=== PATIENT | female | born 1945 | race Caucasian/White ===

== ENCOUNTER 2020-02-23 11:39 | Day surgery (SDC) | payer MEDICARE, OTHER ==
[2020-02-23] MEDS ORDERED: BUPIVACAINE 0.5% VIAL IJ ONE (11:40)
[2020-02-23] MEDS ORDERED: Depo-Medrol 40 MG/ML IM ONE (11:40)
[2020-02-23] MEDS ORDERED: Ketamine HCl 50 MG/ML ONE (14:20)
[2020-02-23] MEDS ORDERED: DIPRIVAN 200 MG/20 ML IV ONE (14:20)
--- NOTE | 2020-02-23 15:20 | XRAY ---
Indication: Right knee injection. Intraoperative fluoroscopy was provided for 6 seconds. Single digital spot image submitted for interpretation demonstrates needle tip projecting over the right femur intercondylar notch. Small amount of contrast injected for needle tip placement. Correlate with intraoperative findings/report.
--- NOTE | 2020-02-23 15:29 | XRAY ---
Indication: Left knee injection. Intraoperative fluoroscopy was provided for 10 seconds. Single digital spot image submitted for interpretation demonstrates needle tip projecting over the left femur intercondylar notch. Small amount of contrast injected for needle tip placement. Correlate with intraoperative findings/report.
[2020-02-23] MEDS ORDERED: Lactated Ringers 1,000 ML IV ONE (16:08)
--- NOTE | 2020-02-23 16:20 | XRAY ---
10 seconds fluoroscopy time in surgery for left knee injection.
--- NOTE | 2020-02-23 16:20 | XRAY ---
6 seconds fluoroscopy time in surgery for right knee injection.
== END 2020-02-23 14:39 | disposition home or self-care (01) ==
LOC: SDC-PAIN 11:39
PROVIDERS: ATTEND Psychiatry & Neurology Pain Medicine
DX: M17.0 Bilateral primary osteoarthritis of knee (principal); I10 Essential (primary) hypertension; M54.30 Sciatica, unspecified side; M10.9 Gout, unspecified; Z79.899 Other long term (current) drug therapy
CPT/HCPCS: 20610; 73560; 77002; J1030; J2704; Q9966

== ENCOUNTER 2022-08-14 08:38 | Day surgery (SDC) | payer MEDICARE, OTHER ==
[2022-08-14] MEDS ORDERED: Sodium Chloride 0.9(Preservative Free) 10 ML IJ ONE (08:39)
[2022-08-14] MEDS ORDERED: Depo-Medrol 40 MG/ML IM ONE (08:39)
[2022-08-14] MEDS ORDERED: DIPRIVAN 200 MG/20 ML IV ONE (09:48)
--- NOTE | 2022-08-14 10:56 | XRAY ---
Indication: Left L3-L5 transforaminal EDIL. Intraoperative fluoroscopy provided for 44 seconds. 6 digital spot image submitted for interpretation demonstrates posterior needle tips projecting over the expected left L3 and L4 nerve roots. Small amount of contrast injected for needle tip placement. Correlate with intraoperative findings/report.
[2022-08-14] MEDS ORDERED: Lactated Ringers 1,000 ML IV ONE (14:45)
== END 2022-08-14 10:15 | disposition home or self-care (01) ==
LOC: SDC-PAIN 08:38
PROVIDERS: ATTEND Psychiatry & Neurology Pain Medicine
DX: M54.16 Radiculopathy, lumbar region (principal); Z79.899 Other long term (current) drug therapy
CPT/HCPCS: 64483; 64484; 72100; 77003; J1030; J2704; Q9966

== ENCOUNTER 2022-09-11 14:00 | Day surgery (SDC) | payer MEDICARE, OTHER ==
[2022-09-11] MEDS ORDERED: Decadron 4 MG INJ IV ONE (14:01)
[2022-09-11] MEDS ORDERED: Sodium Chloride 0.9(Preservative Free) 10 ML IJ ONE (14:01)
[2022-09-11] MEDS ORDERED: Depo-Medrol 40 MG/ML IM ONE (14:01)
[2022-09-11] MEDS ORDERED: LIDOCAINE HCL 1% 50 MG/5 ML VL PF IJ ONE (14:01)
[2022-09-11] MEDS ORDERED: DIPRIVAN 200 MG/20 ML IV ONE (16:43)
[2022-09-11] MEDS ORDERED: Lactated Ringers 1,000 ML IV ONE (17:28)
--- NOTE | 2022-09-11 20:55 | XRAY ---
Indication: Right L3-L5 transforaminal EDIL. Intraoperative fluoroscopy provided for 32 seconds. 5 digital spot images submitted for interpretation demonstrates posterior needle tips projecting over the expected right L3 and L4 nerve roots. Small amount of contrast injected for needle tip placement. Correlate with intraoperative findings/report.
--- NOTE | 2022-09-11 20:58 | XRAY ---
Indication: Bilateral piriformis injection. Intraoperative fluoroscopy provided for 40 seconds. 3 digital spot images submitted for interpretation demonstrates posterior needle tip projecting over the expected left and right piriformis muscles. Small amount of contrast injected for needle tip placement. Correlate with intraoperative findings/report.
--- NOTE | 2022-09-12 09:04 | XRAY ---
32 seconds of fluoroscopy was used in surgery for a right L3-L5 transforaminal EDIL.
--- NOTE | 2022-09-12 09:04 | XRAY ---
40 seconds of fluoroscopy was used in surgery for a bilateral piriformis injection.
== END 2022-09-11 17:18 | disposition home or self-care (01) ==
LOC: SDC-PAIN 14:00
PROVIDERS: ATTEND Psychiatry & Neurology Pain Medicine
DX: M54.16 Radiculopathy, lumbar region (principal); M79.18 Myalgia, other site; Z79.899 Other long term (current) drug therapy
CPT/HCPCS: 20552; 64483; 72100; 72170; 77002; 77003; 99100; J1030; J1100; J2001; J2704; Q9966

== ENCOUNTER 2022-10-23 11:59 | Day surgery (SDC) | payer MEDICARE, OTHER ==
[2022-10-23] MEDS ORDERED: Depo-Medrol 40 MG/ML IM ONE (12:00)
[2022-10-23] MEDS ORDERED: BUPIVACAINE 0.5% VIAL IJ ONE (12:00)
[2022-10-23] MEDS ORDERED: DIPRIVAN 200 MG/20 ML IV ONE (13:32)
[2022-10-23] MEDS ORDERED: Xylocaine-Mpf 2% 5 Ml Vial ONE (13:46)
--- NOTE | 2022-10-23 15:14 | XRAY ---
Indication: Right knee injection. Intraoperative fluoroscopy provided for 9 seconds. Single digital spot image submitted for interpretation demonstrates needle tip projecting over right femur intercondylar notch. Small amount of contrast injected for needle tip placement. Correlate with intraoperative findings/report.
--- NOTE | 2022-10-23 15:14 | XRAY ---
Indication: Left knee injection. Intraoperative fluoroscopy provided for 7 seconds. Single digital spot image submitted for interpretation demonstrates needle tip projecting over left femur intercondylar notch. Small amount of contrast injected for needle tip placement. Correlate with intraoperative findings/report.
--- NOTE | 2022-10-23 15:16 | XRAY ---
9 seconds of fluoroscopy was used in surgery for a right intra-articular knee injection.
[2022-10-23] MEDS ORDERED: Lactated Ringers 1,000 ML IV ONE (16:49)
--- NOTE | 2022-10-23 20:11 | XRAY ---
7 seconds of fluoroscopy was used in surgery for a left intra-articular knee injection.
== END 2022-10-23 14:10 | disposition home or self-care (01) ==
LOC: SDC-PAIN 11:59
PROVIDERS: ATTEND Psychiatry & Neurology Pain Medicine
DX: M17.0 Bilateral primary osteoarthritis of knee (principal); Z79.899 Other long term (current) drug therapy
CPT/HCPCS: 20610; 73560; 77002; J1030; J2704; Q9966

== ENCOUNTER 2023-10-04 17:11 | Emergency (ER) | payer MEDICARE, OTHER ==
[2023-10-04 17:34] VITALS: RESP 18; TEMP 98.2
--- NOTE | 2023-10-04 17:44 | ERPHSYRPT ---
- History of Present Illness Source: patient Exam Limitations: no limitations Patient Subjective Stated Complaint: C/O right knee following a fall around 1pm today. Patient states she was walking on uneven concrete, caughter her toe and fell. Triage Nursing Assessment: Patient brought back to ER in a W/C. She is alert and oriented. Right knee is swollen and bruises with a few small abrasion present to area. Dressing to right elbow/lower arm removed with a skin tear present underneath it. ROM WNL to RUE. Did not range right knee. Occurred: just prior to arrival Reason for Fall: tripped Injuries/Pain Location: upper extremity, lower extremity Loss of Consciousness: no loss of consciousness Quality: sharpness Severity of Pain-Max: severe Severity of Pain-Current: moderate Associated Symptoms (Fall): denies symptoms Hx Tetanus, Diphtheria Vaccination/Date Given: Yes Hx Influenza Vaccination/Date Given: Yes Hx Pneumococcal Vaccination/Date Given: No Immunizations Up to Date: Yes <DOMINIQUE KHAN - Last Filed: 10/04/23 19:40> <MARILIA DOUGLAS - Last Filed: 10/06/23 08:13> - History of Present Illness Time Seen by Provider: 10/04/23 17:40 Physician History: 78yo f presents via private vehicle for pain in right knee following ground level mechanical fall at a roughly 1h [employer]. Pt states she tripped over a raised portion of the sidewalk, landed on her right knee and right elbow. Pt has small skin tear on right elbow w/ minimal bleeding. Pt reports 10/10 pain in knee while weight bearing, pt was brought in to ED in wheelchair. Pt denies pain in the hip or ankle, denies any shoulder or wrist pain, did not lose consciousness or hit head during fall, not on anticoagulant. (DOMINIQUE KHAN) Allergies/Adverse Reactions: morphine Allergy (Mild, Verified 10/04/23 17:23) very nauseated Sulfa (Sulfonamide Antibiotics) Allergy (Mild, Verified 10/04/23 17:23) mouth blisters tetracycline [Tetracycline] Allergy (Mild, Verified 10/04/23 17:23) blisters in mouth Home Medications: Calcium Carbonate/Vitamin D3 [Calcium 600 + Vit D Caplet] 1 each PO DAILY 05/13/13 [History] Diazepam 5 mg [Valium 5 MG] 5 mg PO HS 05/13/13 [History] Fish Oil/Dha/Epa [Fish Oil 1,200 mg Fish Oil] 2 each PO DAILY 05/13/13 [History] Gabapentin 800 mg PO TID 05/13/13 [History] Naproxen Sodium 660 mg PO TID 05/13/13 [History] Vitamin E 400 Units [Vitamin E 400 UNIT SOFTGEL] 400 unit PO DAILY 05/13/13 [History] diphenhydrAMINE HCL [Benadryl] 25 mg PO DAILY 05/13/13 [History] Multivitamins-Min/FA/Ginkgo [Women's 50+ Daily Formula Tab] 1 each PO DAILY 05/24/13 [History] Travel Risk - International Travel Have you traveled outside of the country in past 3 weeks: No - Emerging Infectious Disease Are you exhibiting symptoms associated with any current EIDs: No <DOMINIQUE KHAN - Last Filed: 10/04/23 19:40> - Review of Systems Constitutional: No Symptoms Respiratory: No Symptoms Cardiac: No Symptoms Musculoskeletal: Injury, Joint Pain, Joint Swelling, No Deformity, No Joint Redness <DOMINIQUE KHAN - Last Filed: 10/04/23 19:40> - Past Medical History Pertinent Past Medical History: Yes Neurological History: Peripheral Neuropathy ENT History: No Pertinent History Cardiac History: Hypertension Respiratory History: No Pertinent History Endocrine Medical History: No Pertinent History Musculoskeletal History: Arthritis, Fractures GI Medical History: Gallbladder Disease History: No Pertinent History Psycho-Social History: No Pertinent History Female Reproductive Disorders: Abnormal Uterine Bleeding, Endometriosis, Fibroids - Past Surgical History Past Surgical History: Yes Neuro Surgical History: No Pertinent History Cardiac: No Pertinent History Respiratory: No Pertinent History Gastrointestinal: Appendectomy, Cholecystectomy Genitourinary: No Pertinent History Musculoskeletal: Orthopedic Surgery Female Surgical History: Section, Hysterectomy, Other Other Surgical History: d&c, bilateral bakers cyst removal. sinus surgery - Social History Smoking Status: Current every day smoker How long have you smoked: 60 years Exposure to second hand smoke: Yes Drug Use: none Patient Lives Alone: No - Social Determinants of Health Will the patient participate in the screening: Yes Do you worry about a steady place to live?: No Do you have any problems with any of the following?: No known problems In the past 12 months,have you had to go without utilities?: No Transportation Issues: No Has anyone in your support network made you feel unsafe?: No Have you or anyone in your house had to go without enough: No <DOMINIQUE KHAN - Last Filed: 10/04/23 19:40> - Michelle Coma Score Best Eye Response (Michelle): (4) open spontaneously Best Verbal Response ([place]): (5) oriented Best Motor Response ([place]): (6) obeys commands [place] Total: 15 - Physical Exam General Appearance: no apparent distress, alert Respiratory/Chest Exam: normal breath sounds, No chest tenderness, No respiratory distress Cardiovascular Exam: normal heart sounds, regular rate/rhythm Extremity Exam: pelvis stable, contusions, inflammation, joint swelling, limited range of motion, bony point tenderness, evidence of injury, pain with movement, swelling, tenderness, other (Right knee - limited flexion 2/2 pain, TTP over tibial plateau and patella, mild TTP in distal femur to mid tibia, mild swelling appreciated; right elbow - small skin tear ), No calf tenderness, No deformities, No lacerations, No penetrations, No hip tenderness, No sensory deficit Neurologic Exam: alert, oriented x 3, cooperative SpO2: 96 <ERINDOMINIQUE HERMAN - Last Filed: 10/04/23 19:40> - Nursing Vital Signs Nursing Vital Signs: Initial Vital Signs Temperature 98.2 F 10/04/23 17:12 Pulse Rate 82 10/04/23 17:12 Respiratory Rate 18 10/04/23 17:12 Blood Pressure 143/73 10/04/23 17:12 O2 Sat by Pulse Oximetry 96 10/04/23 17:12 Pain Scale Pain Intensity 5 - Course Nursing assessment & vital signs reviewed: Yes - Radiology Exams Right Elbow X-ray Interpretation: Interpreted by me, Non-displaced Fracture (radial neck) Right Humerus X-ray Interpretation: Interpreted by me, Negative - CT Exams Right Lower Extremity CT Interpretation: Tele-radiologist Report, Fracture (Nondisplaced patella fracture, nondisplaced avulsion fracture of navicular) <MARILIA DOUGLAS - Last Filed: 10/06/23 08:13> Ordered Tests: Medication Summary Discontinued Medications Generic Name Dose Route Start Last Admin Trade Name Freq PRN Reason Stop Dose Admin Acetaminophen 975 mg 10/04/23 17:46 10/04/23 17:54 Acetaminophen 325 Mg Tablet PO 10/04/23 17:47 975 mg STAT ONE Administration Acetaminophen Confirm 10/04/23 17:51 Acetaminophen 325 Mg Tablet Administered 10/04/23 17:52 Dose 975 mg .ROUTE .STK-MED ONE Hydrocodone Bitart/Acetaminophen 2 tab 10/04/23 20:48 10/04/23 21:35 Hydrocodone/Apap 5/325 1 Tab Tablet PO 10/04/23 20:49 2 tab SENT HOME W/ PATIENT ONE Administration Hydrocodone Bitart/Acetaminophen Confirm 10/04/23 21:35 Hydrocodone/Apap 5/325 1 Tab Tablet Administered 10/04/23 21:36 Dose 2 tab .ROUTE .STK-MED ONE Bacitracin Zinc Confirm 10/04/23 17:51 Bacitracin Packet 1 Each Pckt Administered 10/04/23 17:52 Dose 1 each .ROUTE .STK-MED ONE Bacitracin Zinc 0.9 each 10/04/23 17:52 10/04/23 17:53 Bacitracin Packet 1 Each Pckt TP 10/04/23 17:53 0.9 each STAT ONE Administration <DOMINIQUE KHAN - Last Filed: 10/04/23 19:40> - Progress Progress: pain not gone completely Discussed with Dr.: Other (Thong) Will see patient in: office Counseled pt/family regarding: diagnosis, need for follow-up, rad results <MARILIA DOUGLAS - Last Filed: 10/06/23 08:13> - Progress Progress Note: 10/04/23 19:40 I discussed pt case w/ Dr Douglas who assumed care for this patient at 19:00 (DOMINIQUE KHAN) Patient was found to have a nondisplaced radial neck fracture of her right elbow, nondisplaced fracture of her patella and an avulsion fracture of her navicular. I called and discussed these results with Dr. Benito orthopedic surgeon on-call dedrick who recommended placement in a knee immobilizer for the patella fracture and sling for the radial neck fracture. He recommended follow- up in the Ortho clinic at 1 PM on Friday. Patient given Arcata 5 prior to discharge as well as 2 Arcata fives to take home since the pharmacy will be closed at this time. (MARILIA DOUGLAS) Medical Desision Making - Diagnostic Testing Diagnostic test were ordered, analyzed, and reviewed by me: Yes Radiological Interpretation: Interpreted by me, Reviewed by me, Teleradiologist Report - Risk of complications The pt has a mod risk of morbidity or mortality based on: Need for prescription drug management <MARILIA DOUGLAS - Last Filed: 10/06/23 08:13> - Departure Critical Care Time: No <ERINDOMINIQUE - Last Filed: 10/04/23 19:40> - Departure Departure Disposition: Home <MARILIA DOUGLAS - Last Filed: 10/06/23 08:13> - Departure Clinical Impression: Nondisplaced fracture of neck of right radius, Nondisplaced fracture of right patella, Avulsion fracture of navicular bone of right foot Fall Qualifiers: Encounter type: initial encounter Qualified Code(s): W19.XXXA - Unspecified fall, initial encounter Condition: Stable Referrals: FEDERICO HERNANDEZ MD [Primary Care Provider] - Follow up/PCP as directed HENRIETTA BENITO DO [ACTIVE STAFF] - 10/06/23 1:00 pm Instructions: Preventing falls in adults Prescriptions: Hydrocodone/Acetaminophen [Hydrocodone-Acetamin 5-325 mg] 1 tab PO Q6HPRN PRN 5 Days #20 tablet MDD 4 PRN Reason: Pain
[2023-10-04] MEDS ORDERED: BACIGUENT PACKET ONE (17:51)
[2023-10-04] MEDS ORDERED: TYLENOL 325 MG ONE (17:51)
[2023-10-04] MEDS: BACIGUENT PACKET TP ONE (17:53)
[2023-10-04] MEDS: TYLENOL 325 MG PO ONE (17:54)
[2023-10-04 18:59] VITALS: BP 143/58; PULSE 63; O2SAT 96
--- NOTE | 2023-10-04 20:08 | XRAY ---
CLINICAL HISTORY: fall on right knee COMPARISON: XA Bone Length Studies (Scanogram/ Orthoroentgenogram) dated 12/19/2022. TECHNIQUE: Contiguous axial CT images of the limited right lower extremity were obtained without intravenous contrast. Sagittal and coronal multiplanar reconstructions were also acquired. One of the following dose reduction techniques was utilized for this exam.Automated exposure control, adjustment of the mA and/or kV according to patient size, and use of iterative reconstruction. FINDINGS: Non-displaced fracture of the lateral aspect of the patella. Additional non-displaced fracture of the navicular bone. Avulsion fracture from the dorsal aspect of the talar head/neck. Mild knee and foot joint effusion. Moderate to severe OA of the knee, ankle, subtalar and talonavicular joint manifested by joint space narrowing, subchondral sclerosis and cystic changes and osteophyte formation. Decreased bone density. No sclerotic or lytic focal bony lesions. No definite soft tissue abnormalities. IMPRESSION: 1. Non-displaced fracture of the lateral aspect of the patella. No dislocation. 2. Additional non-displaced fracture of the navicular bone. Avulsion fracture from the dorsal aspect of the talar head/neck. 3. Mild knee and foot joint effusion. 4. Moderate to severe OA of the knee, ankle, subtalar and talonavicular joint as described. 5. Diffuse osteopenia noted. Electronically Signed by: Makayla Ovalle MD. (10/04/2023 20:04:07 EDT)
--- NOTE | 2023-10-04 20:31 | XRAY ---
Indication: Pain following fall. Comparison: None 2 view right humerus demonstrates osteopenia and mild AC degenerative changes. No other bony, articular, or soft tissue abnormalities.
--- NOTE | 2023-10-04 20:31 | XRAY ---
Indication: Pain following fall. Comparison: None 3 view right elbow demonstrates osteopenia and nondisplaced transverse radial head acute fracture. No other bony, ocular, or soft tissue abnormalities.
[2023-10-04] MEDS: NORCO 5/325 MG PO ONE (21:35)
[2023-10-04] MEDS ORDERED: NORCO 5/325 MG ONE (21:35)
--- NOTE | 2023-10-05 08:13 | XRAY ---
Indication: Pain following fall. Comparison: None 3 view right knee demonstrates osteopenia, mild/moderate tricompartmental degenerative changes greatest medial compartment, small nonspecific effusion, and mild scattered vascular calcifications. No other bony, articular, or soft tissue abnormalities.
--- NOTE | 2023-10-05 08:13 | XRAY ---
Indication: Pain following fall. Comparison: None 3 nonweightbearing views right foot demonstrates osteopenia, advanced talonavicular degenerative changes, and tiny heel spurs. No other bony, articular, or soft tissue abnormalities.
== END 2023-10-04 22:28 | disposition home or self-care (01) ==
LOC: ED 17:11
DX: S82.001A Unspecified fracture of right patella, initial encounter for closed fracture (principal); S92.254A Nondisplaced fracture of navicular [scaphoid] of right foot, initial encounter for closed fracture; S52.124A Nondisplaced fracture of head of right radius, initial encounter for closed fracture; W01.0XXA Fall on same level from slipping, tripping and stumbling without subsequent striking against object, initial encounter; I10 Essential (primary) hypertension; Z79.899 Other long term (current) drug therapy; Z72.0 Tobacco use
CPT/HCPCS: 73060; 73080; 73560; 73630; 73700; 99284; L1830; A9270-GY